=== PATIENT | male | born 1965 | race African-American/Black ===

== ENCOUNTER 2022-12-05 10:39 | Emergency (ER) | payer OTHER, MEDICAID ==
[~2022-12-05] VITALS: Ht 182.9 cm; Wt 82.0 kg
[~2022-12-05 10:39] MED LIST: METFORMIN
[2022-12-05 11:21] VITALS: RESP 31; TEMP 98.7
[2022-12-05] MEDS ORDERED: ONDANSETRON HCL 4MG/2ML INJ IV STA (11:32)
[2022-12-05] MEDS ORDERED: SODIUM CHLORIDE 0.9% 1,000 ML IV ONE (11:45)
[2022-12-05 12:03] LABS: HEMATOCRIT. 44.8 % (42.0-52.0); HEMOGLOBIN. 15.2 g/dL (14.0-18.0); MEAN CORPUSCULAR HEMOGLOBIN 29.6 pg (28.0-32.0); MEAN CORPUSCULAR HGB CONC 33.9 g/dL (31.0-37.0); MEAN CORPUSCULAR VOLUME 87.3 fL (80.0-94.0); MEAN PLATELET VOLUME 8.7 fl (7.4-10.4); PLATELET 180 x1000/uL (130-400); RED BLOOD CELL COUNT 5.13 mill/uL (4.7-6.1); RED CELL DISTRIBUTION WIDTH 14.3 % (11.6-14.6); WHITE BLOOD COUNT 11.1 x1000/uL (4.5-11.0)
[2022-12-05 12:12] LABS: DIFFERENTIAL COMMENT 1
[2022-12-05 12:17] LABS: CHLORIDE 105 mEq/L (98-107); INDEX HEMOLYSI 2 (1-3); INDEX ICTERIC 1 (1-4); INDEX LIPEMIC 1 (1-3); POTASSIUM 3.6 mEq/L (3.5-5.1); SODIUM 133 mEq/L (136-145)
[2022-12-05 12:19] LABS: INR 1.1; PROTHROMBIN TIME 12.2 sec (9.6-11.0)
[2022-12-05 12:41] LABS: ALANINE AMINOTRANSFERASE 26 IU/L (13-61); ALBUMIN 4.2 g/dL (3.4-5.0); ASPARTATE AMINOTRANSFERASE 22 IU/L (15-37); BILIRUBIN TOTAL 1.8 mg/dL (0.1-1.0); CALCIUM 8.5 mg/dL (8.5-10.1); CARBON DIOXIDE 23 mEq/L (21-32); CREATININE 0.7 mg/dL (0.6-1.3); GLUCOSE 185 mg/dL (70-105); PROTEIN TOTAL 8.9 g/dL (6.0-8.3); TROPONIN I HIGH SENSITIVITY 6 ng/L (<78); UREA NITROGEN BLOOD 13 mg/dL (7-21)
[2022-12-05 13:22] LABS: PLATELET ESTIMATE NORMAL
[2022-12-05 13:35] VITALS: BP 167/103; PULSE 106
[2022-12-05] MEDS ORDERED: ONDA4TAB50 MT (14:02)
== END 2022-12-05 14:33 | disposition home or self-care (01) ==
LOC: ER 11:44
DX: R10.13 Epigastric pain (principal); R11.2 Nausea with vomiting, unspecified; R51.9 Headache, unspecified; R06.02 Shortness of breath; E11.9 Type 2 diabetes mellitus without complications; Z79.899 Other long term (current) drug therapy
CPT/HCPCS: 80053; 83690; 85025; 85610; 84484; 36415; 71045; 70450; 74176; 96361; 96374; 99284; J2405; J7030; Z7610

== ENCOUNTER 2023-09-28 07:39 | Emergency (ER) | payer OTHER, MEDICAID ==
[~2023-09-28] VITALS: Ht 185.4 cm; Wt 113.0 kg
[~2023-09-28 07:39] MED LIST changes: +ONDA4TAB50 MT
[2023-09-28 07:41] VITALS: BP 154/106; PULSE 96; RESP 18; TEMP 98.9; O2SAT 100
[2023-09-28 08:20] LABS: BASOPHILS % 0.1 % (0.0-2.0); EOSINOPHILS % 0.2 % (0.0-5.0); HEMATOCRIT. 47.9 % (42.0-52.0); HEMOGLOBIN. 16.3 g/dL (14.0-18.0); LYMPHOCYTES % 7.6 % (20.0-50.0); MEAN CORPUSCULAR HEMOGLOBIN 31.3 pg (28.0-32.0); MEAN CORPUSCULAR HGB CONC 33.9 g/dL (31.0-37.0); MEAN CORPUSCULAR VOLUME 92.3 fL (80.0-94.0); MEAN PLATELET VOLUME 9.8 fl (7.4-10.4); MONOCYTES % 3.5 % (2.0-8.0); NEUTROPHILS % 88.6 % (40.0-76.0); PLATELET 189 x1000/uL (130-400); RED BLOOD CELL COUNT 5.19 mill/uL (4.7-6.1); RED CELL DISTRIBUTION WIDTH 13.4 % (11.6-14.6); WHITE BLOOD COUNT 10.1 x1000/uL (4.5-11.0)
[2023-09-28 08:35] LABS: CALCIUM 10.4 mg/dL (8.7-10.4); CARBON DIOXIDE 21 mEq/L (21-32); CHLORIDE 94 mEq/L (98-107); POTASSIUM 4.1 mEq/L (3.5-5.1); SODIUM 132 mEq/L (136-145)
[2023-09-28 08:40] LABS: CREATININE 1.6 mg/dL (0.6-1.3)
[2023-09-28 08:41] LABS: UREA NITROGEN BLOOD 16 mg/dL (9-23)
[2023-09-28 08:42] LABS: ALANINE AMINOTRANSFERASE 22 IU/L (10-49); ALBUMIN 4.9 g/dL (3.2-4.8); ASPARTATE AMINOTRANSFERASE 26 IU/L (<34)
[2023-09-28 08:43] LABS: BILIRUBIN DIRECT 0.4 mg/dL (<=3.0); BILIRUBIN TOTAL 1.6 mg/dL (0.1-1.0); PROTEIN TOTAL 8.9 g/dL (6.0-8.3)
[2023-09-28 08:54] LABS: GLUCOSE 422 mg/dL (70-105)
[2023-09-28 09:34] LABS: TROPONIN I HIGH SENSITIVITY < 4 ng/L (3.0-53)
[2023-09-28] MEDS: SODIUM CHLORIDE 0.9% 1,000 ML IV ONE (10:09)
[2023-09-28] MEDS: METOCLOPRAMIDE HCL 10MG/2ML VIAL IV STA (10:09)
[2023-09-28] MEDS ORDERED: ONDA4TAB50 MT (12:37)
== END 2023-09-28 12:53 | disposition home or self-care (01) ==
LOC: ER 07:39
DX: R11.2 Nausea with vomiting, unspecified (principal); E86.0 Dehydration; E11.65 Type 2 diabetes mellitus with hyperglycemia
CPT/HCPCS: 99283; 96374; 96361; 80076; 80048; 82962; 83690; 85025; 84484; 36415; 82010; 93005; J2765; J7030

== ENCOUNTER 2023-09-29 08:42 | Inpatient (IN) | payer OTHER ==
[~2023-09-29] VITALS: Ht 185.4 cm; Wt 104.3 kg
[2023-09-29 09:36] LABS: BASOPHILS % 0.3 % (0.0-2.0); HEMATOCRIT. 38.7 % (42.0-52.0); HEMOGLOBIN. 12.8 g/dL (14.0-18.0); LYMPHOCYTES % 9.7 % (20.0-50.0); MEAN CORPUSCULAR HEMOGLOBIN 30.4 pg (28.0-32.0); MEAN CORPUSCULAR HGB CONC 33.2 g/dL (31.0-37.0); MEAN CORPUSCULAR VOLUME 91.7 fL (80.0-94.0); MEAN PLATELET VOLUME 9.4 fl (7.4-10.4); MONOCYTES % 4.9 % (2.0-8.0); NEUTROPHILS % 85.1 % (40.0-76.0); PLATELET 160 x1000/uL (130-400); RED BLOOD CELL COUNT 4.21 mill/uL (4.7-6.1); RED CELL DISTRIBUTION WIDTH 13.4 % (11.6-14.6); WHITE BLOOD COUNT 10.4 x1000/uL (4.5-11.0)
[2023-09-29 09:48] LABS: CHLORIDE 94 mEq/L (98-107); POTASSIUM 3.6 mEq/L (3.5-5.1); SODIUM 128 mEq/L (136-145)
[2023-09-29 09:49] LABS: CARBON DIOXIDE 22 mEq/L (21-32)
[2023-09-29 09:50] LABS: CALCIUM 9.4 mg/dL (8.7-10.4)
[2023-09-29 09:54] LABS: CREATININE 1.1 mg/dL (0.6-1.3); UREA NITROGEN BLOOD 16 mg/dL (9-23)
[2023-09-29 09:56] LABS: ALANINE AMINOTRANSFERASE 19 IU/L (10-49); ALBUMIN 4.3 g/dL (3.2-4.8); ASPARTATE AMINOTRANSFERASE 28 IU/L (<34)
[2023-09-29 09:57] LABS: BILIRUBIN TOTAL 2.2 mg/dL (0.1-1.0); PROTEIN TOTAL 8.1 g/dL (6.0-8.3)
[2023-09-29 10:19] LABS: GLUCOSE 268 mg/dL (70-105)
[2023-09-29 10:25] LABS: TROPONIN I HIGH SENSITIVITY 11 ng/L (3.0-53)
[2023-09-29] MEDS: ONDANSETRON HCL 4MG/2ML INJ IV STA (10:37)
[2023-09-29] MEDS: SODIUM CHLORIDE 0.9% 1,000 ML IV ONE (10:37)
[2023-09-29] MEDS: KETOROLAC 30MG/ML VIAL IV STA (10:37)
[2023-09-29] MEDS: HYDRALAZINE 20MG/ML VIAL IV PRN (18:18)
[2023-09-29] MEDS: HYDRALAZINE 20MG/ML VIAL IV NR (20:55)
[2023-09-29] MEDS ORDERED: DEXTROSE 50% WATER 50ML SYRINGE IV PRN (23:15)
[2023-09-29] MEDS ORDERED: NALOXONE HCL 0.4MG/ML VIAL IV PRN (23:15)
[2023-09-29] MEDS: ZOLPIDEM TARTRATE 5MG TABLET PO PRN (23:43)
[2023-09-30] VITALS (8 sets, daily range): BP systolic 115–176; BP diastolic 78–106; PULSE 77–102; RESP 18–22; TEMP 97.5–98.6
[2023-09-30] MEDS: CLONIDINE 0.1MG TABLET PO PRN (00:13)
[2023-09-30] MEDS: BLOOD SUGAR DIAGNOSTIC STRIP TEST SCH (06:22)
[2023-09-30] MEDS: INSULIN LISPRO 100 UNITS/ML SUBCUT SCH (07:02)
[2023-09-30 07:21] LABS: BASOPHILS % 0.2 % (0.0-2.0); EOSINOPHILS % 0.1 % (0.0-5.0); HEMATOCRIT. 43.2 % (42.0-52.0); HEMOGLOBIN. 14.7 g/dL (14.0-18.0); LYMPHOCYTES % 12.3 % (20.0-50.0); MEAN CORPUSCULAR HEMOGLOBIN 30.9 pg (28.0-32.0); MEAN CORPUSCULAR HGB CONC 34.1 g/dL (31.0-37.0); MEAN CORPUSCULAR VOLUME 90.6 fL (80.0-94.0); MEAN PLATELET VOLUME 10.4 fl (7.4-10.4); MONOCYTES % 6.3 % (2.0-8.0); NEUTROPHILS % 81.1 % (40.0-76.0); PLATELET 184 x1000/uL (130-400); RED BLOOD CELL COUNT 4.77 mill/uL (4.7-6.1); RED CELL DISTRIBUTION WIDTH 13.4 % (11.6-14.6); WHITE BLOOD COUNT 9.9 x1000/uL (4.5-11.0)
[2023-09-30 07:26] LABS: CALCIUM 8.8 mg/dL (8.7-10.4); CARBON DIOXIDE 24 mEq/L (21-32); CHLORIDE 95 mEq/L (98-107); POTASSIUM 3.6 mEq/L (3.5-5.1); SODIUM 131 mEq/L (136-145)
[2023-09-30 07:31] LABS: CREATININE 0.9 mg/dL (0.6-1.3); GLUCOSE 220 mg/dL (70-105)
[2023-09-30 07:32] LABS: TRIGLYCERIDE 138 mg/dL (0-150); UREA NITROGEN BLOOD 19 mg/dL (9-23)
[2023-09-30 07:33] LABS: CHOLESTEROL 190 mg/dL (<200); LDL CHOLESTEROL 100 mg/dL (5-100)
[2023-09-30 07:34] LABS: HDL CHOLESTEROL 52 mg/dL (>55)
[2023-09-30] MEDS: METFORMIN HCL 500MG TABLET PO SCH (07:50)
[2023-09-30] MEDS: HYDROCODONE/ACETAMINOPHEN 5/325MG TABLET PO PRN (07:51)
[2023-09-30] MEDS: ONDANSETRON HCL 4MG TABLET PO PRN (07:53)
[2023-09-30] MEDS: PANTOPRAZOLE SODIUM 40 MG/VIAL IV SCH (08:25)
[2023-09-30] MEDS: METOPROLOL TARTRATE 100MG TABLET PO SCH (08:25)
[2023-09-30] MEDS: ENOXAPARIN 30MG/0.3ML SYR SUBCUT SCH (08:26)
[2023-09-30] MEDS: ONDANSETRON HCL 4MG/2ML INJ IV PRN (12:32)
[2023-09-30 15:37] LABS: TROPONIN I HIGH SENSITIVITY 12 ng/L (3.0-53)
[2023-09-30] MEDS: SODIUM CHLORIDE 0.9% 1,000 ML IV SCH (17:37)
[2023-09-30] MEDS: ATORVASTATIN CALCIUM 40MG TABLET PO SCH (20:42)
[2023-10-01] VITALS: BP 135/79; PULSE 69; RESP 18; TEMP 98.8
[2023-10-01 04:00] VITALS: BP 128/78; PULSE 70; RESP 18; TEMP 98.1
[2023-10-01 08:00] VITALS: BP 106/57; PULSE 89; RESP 18; TEMP 99
[2023-10-01] MEDS: MAGNESIUM/ALUMINUM HYDROXIDE/SIMETHICONE 30ML UDC PO PRN (10:16)
[2023-10-01 12:00] VITALS: BP 160/90; PULSE 76; RESP 18; TEMP 98.1
[2023-10-01 16:00] VITALS: BP 154/92; PULSE 78; RESP 18; TEMP 98.4
[2023-10-01 16:41] LABS: CLARITY URINE CLEAR (CLEAR); COLOR URINE YELLOW (YELLOW); GLUCOSE URINE 3+ (NEGATIVE); KETONES URINE 2+ (NEGATIVE); LEUKOCYTE ESTERASE URINE 1+ (NEGATIVE); NITRITE URINE NEGATIVE (NEGATIVE); OCCULT BLOOD URINE NEGATIVE (NEGATIVE); PH URINE 6.5 (4.5-8.0); PROTEIN URINE NEGATIVE (NEGATIVE); SPECIFIC GRAVITY URINE 1.021 (1.005-1.030); UROBILINOGEN URINE 0.2 E.U./dL (0.2-1.0)
[2023-10-01 17:09] LABS: *AMPHETAMINES SCREEN URINE NEGATIVE (NEGATIVE)
[2023-10-01 17:10] LABS: *BARBITURATES SCREEN URINE NEGATIVE (NEGATIVE); *BENZODIAZEPINES SCREEN URINE NEGATIVE (NEGATIVE); CANNABINOID URINE SCREEN NEGATIVE (NEGATIVE); ECSTASY MDMA SCREEN URINE NEGATIVE (NEGATIVE); METHADONE URINE SCREEN NEGATIVE (NEGATIVE); OPIATES URINE SCREEN PRESUMPTIVE POSITIVE (NEGATIVE); PHENCYCLIDINE URINE SCREEN NEGATIVE (NEGATIVE)
[2023-10-01 17:13] LABS: *COCAINE SCREEN URINE NEGATIVE (NEGATIVE)
[2023-10-01 17:26] LABS: BACTERIA URINE 1+; RBC URINE 0-2 /hpf (0-2); SQUAMOUS EPITHELIAL CELL URINE 1+ /lpf (RARE/1+)
[2023-10-01 20:00] VITALS: BP 153/88; PULSE 83; RESP 20; TEMP 98.1
[2023-10-01] MEDS: FLUTICASONE PROPIONATE 50MCG/SPRAY BOTTLE BOTHNSTRLS SCH (20:39)
[2023-10-02] VITALS: BP 115/79; PULSE 83; RESP 18; TEMP 97.7
[2023-10-02 04:00] VITALS: BP 142/83; PULSE 83; RESP 20; TEMP 97.7
[2023-10-02 06:14] LABS: CHLORIDE 99 mEq/L (98-107); POTASSIUM 3.2 mEq/L (3.5-5.1)
[2023-10-02 06:15] LABS: CARBON DIOXIDE 26 mEq/L (21-32); SODIUM 131 mEq/L (136-145)
[2023-10-02 06:16] LABS: CALCIUM 8.1 mg/dL (8.7-10.4)
[2023-10-02 06:20] LABS: CREATININE 0.8 mg/dL (0.6-1.3)
[2023-10-02 06:21] LABS: GLUCOSE 108 mg/dL (70-105); UREA NITROGEN BLOOD 16 mg/dL (9-23)
[2023-10-02 06:23] LABS: BILIRUBIN DIRECT 0.4 mg/dL (<=3.0); BILIRUBIN TOTAL 1.3 mg/dL (0.1-1.0)
[2023-10-02 06:28] LABS: BASOPHILS % 0.2 % (0.0-2.0); EOSINOPHILS % 1.2 % (0.0-5.0); HEMATOCRIT. 41.3 % (42.0-52.0); HEMOGLOBIN. 14.2 g/dL (14.0-18.0); LYMPHOCYTES % 27.8 % (20.0-50.0); MEAN CORPUSCULAR HEMOGLOBIN 30.8 pg (28.0-32.0); MEAN CORPUSCULAR HGB CONC 34.5 g/dL (31.0-37.0); MEAN CORPUSCULAR VOLUME 89.4 fL (80.0-94.0); MEAN PLATELET VOLUME 10.1 fl (7.4-10.4); MONOCYTES % 11.1 % (2.0-8.0); NEUTROPHILS % 59.7 % (40.0-76.0); PLATELET 169 x1000/uL (130-400); RED BLOOD CELL COUNT 4.62 mill/uL (4.7-6.1); RED CELL DISTRIBUTION WIDTH 12.8 % (11.6-14.6); WHITE BLOOD COUNT 6.6 x1000/uL (4.5-11.0)
[2023-10-02 06:50] LABS: HEPATITIS B SURFACE ANTIGEN NEGATIVE (Negative)
[2023-10-02 07:11] LABS: HEPATITIS A AB IGM NEGATIVE (Negative)
[2023-10-02 07:12] LABS: HEPATITIS B CORE AB IGM NEGATIVE (Negative); HEPATITIS C AB NON REACTIVE (Neg) (Negative)
[2023-10-02 08:00] VITALS: BP 140/82; PULSE 82; RESP 18; TEMP 98.2
[2023-10-02] MEDS: POTASSIUM CHLORIDE 20MEQ TABLET SR PO NR (10:11)
[2023-10-02 12:00] VITALS: BP 141/94; PULSE 74; RESP 18; TEMP 98.6
[2023-10-02] MEDS ORDERED: AMLO10TA80 MT (14:32)
[2023-10-02] MEDS ORDERED: INSU100I28 SQ (14:32)
[2023-10-02] MEDS ORDERED: METO-539 MT (14:32)
[2023-10-02 15:59] VITALS: BP 151/97; PULSE 80; TEMP 96.8; O2SAT 98
== END 2023-10-02 16:50 | disposition home or self-care (01) | DRG 392 ==
LOC: ER 08:42 → 8WST 12:12 → EDBEDREQTM 13:12 → EDBEDREQ 13:12
PROVIDERS: ADMIT Internal Medicine; ATTEND Internal Medicine
DX: K57.30 Diverticulosis of large intestine without perforation or abscess without bleeding (principal); K76.0 Fatty (change of) liver, not elsewhere classified; I16.0 Hypertensive urgency; E11.65 Type 2 diabetes mellitus with hyperglycemia; E66.9 Obesity, unspecified; I10 Essential (primary) hypertension; Z68.30 Body mass index [BMI] 30.0-30.9, adult; Z91.148 Patient's other noncompliance with medication regimen for other reason; K80.20 Calculus of gallbladder without cholecystitis without obstruction
CPT/HCPCS: 36415; 71045; 74177; 76705; 80048; 80053; 80061; 80305; 81003; 82247; 82248; 82962; 83036; 83880; 84484; 85025; 86705; 86709; 87340; 93005; 99285; C9113; J0360; J1650; J1815; J1885; J2405; J7030; Q0162